=== PATIENT | female | born 1995 | race Caucasian/White ===

== ENCOUNTER 2023-08-02 12:42 | Outpatient (CLI) | payer MEDICAID ==
[2023-08-02 17:52] LABS: HCT - HEMATOCRIT 36.2 % (37.0-47.0); HGB - HEMOGLOBIN 11.8 g/dL (12.0-16.0); MEAN CORPUSCULAR HEMOGLOBIN 28.2 pg (27.0-31.0); MEAN CORPUSCULAR HGB CONC 32.6 g/dL (32.0-36.0); MEAN CORPUSCULAR VOLUME 86.6 fL (81.0-99.0); MEAN PLATELET VOLUME 9.8 fL (7.9-10.8); RED BLOOD COUNT 4.18 10^6/uL (4.20-5.40); RED CELL DISTRIBUTION WIDTH 13.6 % (12.0-15.0)
== END 2023-08-02 12:43 | disposition home or self-care (01) ==
LOC: LAB.N 12:42
PROVIDERS: ATTEND Obstetrics & Gynecology
DX: O09.92 Supervision of high risk pregnancy, unspecified, second trimester (principal); R76.0 Raised antibody titer
CPT/HCPCS: 36415; 81599; 82950; 85027; 86850; 86870; 86880

== ENCOUNTER 2023-09-06 11:06 | Outpatient (CLI) | payer MEDICAID | END 2023-09-06 11:07 | disposition home or self-care (01) | LOC: LAB.N 11:06 | PROVIDERS: ATTEND Obstetrics & Gynecology Maternal & Fetal Medicine | DX: O36.0990 Maternal care for other rhesus isoimmunization, unspecified trimester, not applicable or unspecified (principal) | CPT/HCPCS: 81599; 86850 ==

== ENCOUNTER 2023-09-20 08:33 | Outpatient (CLI) | payer MEDICAID ==
[2023-09-20 08:58] VITALS: BP 120/81
--- NOTE | 2023-09-20 09:38 | PROCEDURE REPORT ---
- HPI Diagnosis/Indication for NST: Other (antibody positive) Current EDU 10/30/23 Gestation 34 Weeks and 2 Days 2 Para 1 Vital Signs Temperature 98.1 F 09/20/23 08:44 Heart Rate 95 09/20/23 08:44 Respiratory Rate 17 09/20/23 08:44 Blood Pressure 120/81 H 09/20/23 08:44 Temperature 98.1 F 09/20/23 08:44 Heart Rate 95 09/20/23 08:44 Respiratory Rate 17 09/20/23 08:44 Blood Pressure 120/81 H 09/20/23 08:44 O2 Saturation If not protocol: Oxygen Flow, liters/minute - NST Procedure NST Procedure Start Date 09/20/23 Start Time 08:42 Stop Time 09:08 Vibroacoustic Stimulation Used No Patient States Movement Yes 125 mod candace + A cells no D cells reactive - Results and Plan Findings/Impression: reactive and reassuring NST Plan: continue with scheduled ANC / collaborative care with MFM. precautions reviewed.
== END 2023-09-20 09:13 | disposition home or self-care (01) ==
LOC: WFO 08:33 → FBP 08:35 → WFO 09:13
PROVIDERS: ATTEND Obstetrics & Gynecology
DX: O09.893 Supervision of other high risk pregnancies, third trimester (principal); O28.8 Other abnormal findings on antenatal screening of mother; Z3A.34 34 weeks gestation of pregnancy
CPT/HCPCS: 59025

== ENCOUNTER 2023-09-27 08:51 | Outpatient (CLI) | payer MEDICAID ==
[2023-09-27 09:38] VITALS: BP 120/74
--- NOTE | 2023-09-27 09:40 | PROCEDURE REPORT ---
- HPI Diagnosis/Indication for NST: Other (antiC+, antiE) Vital Signs Temperature 98.2 F 09/27/23 09:01 Heart Rate 98 09/27/23 09:01 Respiratory Rate 18 09/27/23 09:01 Blood Pressure 120/74 09/27/23 09:01 Temperature 98.2 F 09/27/23 09:01 Heart Rate 98 09/27/23 09:01 Respiratory Rate 18 09/27/23 09:01 Blood Pressure 120/74 09/27/23 09:01 O2 Saturation If not protocol: Oxygen Flow, liters/minute - NST Procedure NST Procedure Start Time 08:42 Stop Time 09:08 35+2 weeks anti-C and anti-E antibodies 120, moderate variability, +accels, no decels reactive NST
== END 2023-09-27 09:40 | disposition home or self-care (01) ==
LOC: WFO 08:51 → FBP 08:54 → WFO 09:40
PROVIDERS: ATTEND Obstetrics & Gynecology Obstetrics
DX: O09.93 Supervision of high risk pregnancy, unspecified, third trimester (principal); O99.891 Other specified diseases and conditions complicating pregnancy; R76.0 Raised antibody titer; Z3A.35 35 weeks gestation of pregnancy
CPT/HCPCS: 59025

== ENCOUNTER 2023-09-29 11:13 | Outpatient (CLI) | payer MEDICAID | END 2023-09-29 11:14 | disposition home or self-care (01) | LOC: LAB 11:13 | PROVIDERS: ATTEND Obstetrics & Gynecology | DX: R76.0 Raised antibody titer (principal) | CPT/HCPCS: 81599; 86886 ==

== ENCOUNTER 2023-10-05 11:54 | Outpatient (CLI) | payer MEDICAID ==
[2023-10-05 12:12] VITALS: BP 125/68
--- NOTE | 2023-10-05 12:24 | PROCEDURE REPORT ---
- HPI Vital Signs Temperature 98.1 F 10/05/23 12:05 Heart Rate 105 H 10/05/23 12:05 Respiratory Rate 20 10/05/23 12:05 Blood Pressure 125/68 10/05/23 12:05 Temperature 98.1 F 10/05/23 12:05 Heart Rate 105 H 10/05/23 12:05 Respiratory Rate 20 10/05/23 12:05 Blood Pressure 125/68 10/05/23 12:05 O2 Saturation If not protocol: Oxygen Flow, liters/minute - NST Procedure NST Procedure Start Time 09:05 Stop Time 09:31 - Results and Plan Plan: Patient is a 27-year-old -0-0-1 at 36 weeks 3 days gestation here for scheduled NST. NST Performed 10/05/2023 NST Read 10/05/2023 FHT: 135 bpm baseline, moderate variability, accelerations present, no decelerations. Reactive NST [place]: Quiescent Diagnosis 36 weeks gestation obesity Continue with scheduled NST.
== END 2023-10-05 12:32 | disposition home or self-care (01) ==
LOC: WFO 11:54 → FBP 11:56 → WFO 12:32
PROVIDERS: ATTEND Obstetrics & Gynecology
DX: O99.213 Obesity complicating pregnancy, third trimester (principal); Z3A.36 36 weeks gestation of pregnancy
CPT/HCPCS: 59025

== ENCOUNTER 2023-10-06 15:48 | Outpatient (CLI) | payer MEDICAID | END 2023-10-06 15:49 | disposition home or self-care (01) | LOC: LAB.WC 15:48 | PROVIDERS: ATTEND Obstetrics & Gynecology | DX: Z36.85 Encounter for antenatal screening for Streptococcus B (principal) | CPT/HCPCS: 87797 ==

== ENCOUNTER 2023-10-11 10:04 | Outpatient (CLI) | payer MEDICAID ==
[2023-10-11 10:29] VITALS: BP 126/78
--- NOTE | 2023-10-11 11:03 | PROCEDURE REPORT ---
- HPI Diagnosis/Indication for NST: Other (antibody positive) Vital Signs Temperature 98.4 F 10/11/23 10:17 Heart Rate 109 H 10/11/23 10:17 Respiratory Rate 16 10/11/23 10:17 Blood Pressure 126/78 10/11/23 10:17 Temperature 98.4 F 10/11/23 10:17 Heart Rate 109 H 10/11/23 10:17 Respiratory Rate 16 10/11/23 10:17 Blood Pressure 126/78 10/11/23 10:17 O2 Saturation If not protocol: Oxygen Flow, liters/minute - NST Procedure NST Procedure Start Time 12:02 Stop Time 12:28 - Results and Plan Findings/Impression: 125 mod candace + A cells no D cells reactive and reassuring. Plan: OK to D/C home with precautions and instructions continue scheduled care.
== END 2023-10-11 11:05 | disposition home or self-care (01) ==
LOC: WFO 10:04 → FBP 10:09 → WFO 11:05
PROVIDERS: ATTEND Obstetrics & Gynecology
DX: O09.93 Supervision of high risk pregnancy, unspecified, third trimester (principal); O99.891 Other specified diseases and conditions complicating pregnancy; R76.0 Raised antibody titer; Z3A.00 Weeks of gestation of pregnancy not specified
CPT/HCPCS: 59025

== ENCOUNTER 2023-10-12 10:12 | Outpatient (CLI) | payer MEDICAID ==
[2023-10-12 10:24] LABS: HCT - HEMATOCRIT 32.9 % (37.0-47.0); HGB - HEMOGLOBIN 10.3 g/dL (12.0-16.0); MEAN CORPUSCULAR HEMOGLOBIN 25.4 pg (27.0-31.0); MEAN CORPUSCULAR HGB CONC 31.3 g/dL (32.0-36.0); MEAN CORPUSCULAR VOLUME 81.2 fL (81.0-99.0); MEAN PLATELET VOLUME 9.9 fL (7.9-10.8); RED BLOOD COUNT 4.05 10^6/uL (4.20-5.40); RED CELL DISTRIBUTION WIDTH 14.2 % (12.0-15.0); WHITE BLOOD COUNT 10.7 x10^3/uL (4.8-10.8)
== END 2023-10-12 10:13 | disposition home or self-care (01) ==
LOC: LAB 10:12
PROVIDERS: ATTEND Obstetrics & Gynecology
DX: O99.213 Obesity complicating pregnancy, third trimester (principal); O99.891 Other specified diseases and conditions complicating pregnancy; R76.0 Raised antibody titer
CPT/HCPCS: 36415; 85027; 86886

== ENCOUNTER 2023-10-18 09:54 | Outpatient (CLI) | payer MEDICAID ==
[2023-10-18 10:23] VITALS: BP 139/70
--- NOTE | 2023-10-18 10:37 | PROCEDURE REPORT ---
- HPI Vital Signs Temperature 98.4 F 10/18/23 10:17 Heart Rate 110 H 10/18/23 10:17 Respiratory Rate 16 10/18/23 10:17 Blood Pressure 139/70 H 10/18/23 10:17 Temperature 98.4 F 10/18/23 10:17 Heart Rate 110 H 10/18/23 10:17 Respiratory Rate 16 10/18/23 10:17 Blood Pressure 139/70 H 10/18/23 10:17 O2 Saturation If not protocol: Oxygen Flow, liters/minute - Results and Plan Plan: Patient is a 28-year-old -0-0-1 at 38 weeks 2 days gestation here for sche duled NST. NST Performed 10/18/2023 NST Read 10/18/2023 FHT: 145 bpm baseline, moderate variability, accelerations present, no decelerations. Reactive NST [place]: Irregular Diagnosis 38 weeks gestation Abnormal antibodies Continue with scheduled NST.
== END 2023-10-18 10:40 | disposition home or self-care (01) ==
LOC: WFO 09:54 → FBP 10:12 → WFO 10:40
PROVIDERS: ATTEND Obstetrics & Gynecology
DX: O09.93 Supervision of high risk pregnancy, unspecified, third trimester (principal); O99.891 Other specified diseases and conditions complicating pregnancy; R76.0 Raised antibody titer; Z3A.38 38 weeks gestation of pregnancy
CPT/HCPCS: 59025

== ENCOUNTER 2023-10-23 08:57 | Inpatient (IN) | payer MEDICAID ==
[2023-10-23] MEDS ORDERED: LACTATED RINGERS 1,000 ML IV PRN (09:06)
[2023-10-23] MEDS ORDERED: CARBOPROST TROMETHAMINE 250 MCG/ML AMP IM PRN (09:06)
[2023-10-23] MEDS ORDERED: fentaNYL 100 MCG/2 ML VIAL IVP PRN (09:06)
[2023-10-23] MEDS ORDERED: LABETALOL 20 MG/4 ML SYRINGE IVP PRN ×3 (09:06)
[2023-10-23] MEDS ORDERED: miSOPROStoL 200 MCG TABLET BC PRN (09:06)
[2023-10-23] MEDS ORDERED: OXYTOCIN 10 UNIT/ML VIAL IM PRN (09:06)
[2023-10-23] MEDS ORDERED: SODIUM CHLORIDE FLUSH 0.9% 10 ML SYRINGE IVP PRN (09:06)
[2023-10-23] MEDS ORDERED: ACETAMINOPHEN 500 MG TABLET PO PRN (09:06)
[2023-10-23] MEDS ORDERED: lidocaine 1% 20 ML MDV ID PRN (09:06)
[2023-10-23] MEDS ORDERED: METHYLERGONOVINE 0.2 MG/ML VIAL IM PRN (09:06)
[2023-10-23] MEDS ORDERED: OXYTOCIN/SODIUM CHLORIDE 500 ML IV PRN (09:06)
[2023-10-23] MEDS ORDERED: hydrALAZINE INJ 20 MG/ML VIAL IVP PRN ×2 (09:06)
[2023-10-23] MEDS ORDERED: TRANEXAMIC ACID IN NACL 1,000 MG/100 ML BAG IV PRN (09:06)
[2023-10-23] MEDS ORDERED: NIFEdipine 10 MG CAPSULE PO PRN (09:06)
[2023-10-23] MEDS ORDERED: TERBUTALINE 1 MG/ML VIAL SUBQ PRN (09:06)
[2023-10-23] MEDS ORDERED: miSOPROStoL 200 MCG TABLET PR PRN (09:06)
[2023-10-23] MEDS ORDERED: LACTATED RINGERS 1,000 ML IV SCH ×2 (10:00→19:00)
[2023-10-23] MEDS ORDERED: SODIUM CHLORIDE FLUSH 0.9% 10 ML SYRINGE IVP SCH (10:00)
[2023-10-23] MEDS ORDERED: AMPICILLIN 2 GM in SODIUM CHLORIDE 0.9% MINIBAG 100 ML IV ONE (10:03)
[2023-10-23 10:19] LABS: BASOPHILS % (AUTO) 0.4 %; EOSINOPHILS # (AUTO) 0.2 10^3/uL (0.0-0.7); EOSINOPHILS % (AUTO) 2.1 %; HCT - HEMATOCRIT 32.4 % (37.0-47.0); HGB - HEMOGLOBIN 10.1 g/dL (12.0-16.0); LYMPHOCYTES # (AUTO) 2.3 10^3/uL (1.5-3.5); LYMPHOCYTES % (AUTO) 21.9 %; MEAN CORPUSCULAR HEMOGLOBIN 25.1 pg (27.0-31.0); MEAN CORPUSCULAR HGB CONC 31.2 g/dL (32.0-36.0); MEAN CORPUSCULAR VOLUME 80.4 fL (81.0-99.0); MEAN PLATELET VOLUME 10.2 fL (7.9-10.8); MONOCYTES # (AUTO) 1.1 10^3/uL (0.0-1.0); MONOCYTES % (AUTO) 10.2 %; NEUTROPHILS # (AUTO) 6.8 10^3/uL (1.5-6.6); NEUTROPHILS % (AUTO) 64.4 %; PLT - PLATELET COUNT 319 10^3/uL (130-450); RED BLOOD COUNT 4.03 10^6/uL (4.20-5.40); RED CELL DISTRIBUTION WIDTH 14.3 % (12.0-15.0); WHITE BLOOD COUNT 10.5 x10^3/uL (4.8-10.8)
--- NOTE | 2023-10-23 10:20 | HISTORY & PHYSICAL EXAMINATION ---
Admit History - : 2 Parity: 1 Complications This : positive: Other (Abnormal antibodies) - Mother's Labs Mother's Blood Type: positive: O Mother's RH: positive: Positive GBS: positive: Group B Strep Positive Rubella Status: positive: Immune - Other Maternal History Other Maternal History: HPI: Patient is a 28-year-old -0-0-1 at 39 weeks 0 days gestation by LMP consistent with 9-week ultrasound. She has good movement. Denies loss of fluid. No ALEXANDER/BV or RUQP. No vaginal bleeding. Denies nausea and vomiting. Denies urinary urgency or dysuria. All other symptoms reviewed and were negative except per HPI. Course LMP: 01/23/2023 ANISH by LMP: c/w 9-week ultrasound US: 04/06/2023 Final ANISH: 10/30/2023 JUSTINO Mcgee, a global climate change researcher. Problems: 1. Abnormal antibody titers: Currently anti-C positive, but previously anti-E positive. E titer was negative, and C titer was not performed. Father the baby is anti-E positive as well. Doing Q4 week titers. If increased to 1:16 getting NSTs from 34 weeks. and IOL at 39w [facility] appt for MCA Dopplers -- they test her blood and then test her U/S - monthly. reviewed ABs in detail and MCA Dopplers and justification. Transferred from [facility] at 21 weeks. Pre- Weight: 215lb BMI: 35.7 Blood type: O+ Antibody: [id number]-N?-Anti-C CBC: PLT-328 HCT-38.6 HGB-13.1 RUB: immune VZV: immune HBsAg: negative HepC: negative RPR/AB-EIA: non-reactive HIV: negative PAP: 07/16/2020-normal DUE GC/CT: negative HSV:Denies in self and partner Genetic testing: MSAFP-negative Covid:virus x1 No shots, declines Flu: August 17, 2023 RSV vaccine - Sep. FAS:@[facility] EFW 370g 18th%ile NIDIA normal 3VC anterior placenta no previa 50gm OGCT: 131 TDAP: given 08/17 Breast Pump: given 08/17 3rd trimester: 08/02- H/H 11.8/36.2 plt 354 10/12/2023- H/H 10.3/32.9 PLT 310 GBS: 10/06/2023- Positive Delivery plan: 39w IOL Contraception: while on OCPs. Desires Mirena PMH Irregular menses depression PSH Tonsillectomy: 2014 mole removal OB History -0-0-1 02/18/2021, 39 weeks, , male, 8 pounds 8 ounces SH Former smoker. No tobacco, alcohol, drugs currently Family History Father: Neuralgia Allergies No known drug allergies Medications Ferrous sulfate vitamins Physical exam: General: Alert, oriented, no acute distress Head: Normal cephalic atraumatic Eyes: PERRLA, extraocular motions intact. Respiratory: Normal rate of respiration. No accessory muscle use, normal respiratory effort. Cardiovascular: Regular rate and rhythm Abdomen: Gravid, nontender, nondistended Extremities: Normal range of motion Neuro: Oriented x3. Normal movements Psych: Appropriate mood and affect. Normal judgment and insight SVE: 4/50/-2 FHT: 140 beats per baseline, moderate variability, accelerations present, no decelerations. [place]: Quiescent Plan [age] of-year-old -0-0-1 at 39 weeks gestation here for induction of labor 1. Induction of labor -Admit to L&D, admit labs -Amniotomy performed with small amount of clear fluid. 2. 39 weeks gestation 3. Abnormal antibody titers -Type and screen pending 4. History of depression -Will monitor for worsening symptoms 5. GBS positive -Ampicillin for GBS sepsis prophylaxis 6. Obesity class II - NST Procedure NST Procedure Start Time 10:04 Stop Time 10:33 Meds/Allgy - Allergies Allergies/Adverse Reactions: Allergies Allergy/AdvReac Type Severity Reaction Status Date / Time No Known Drug Allergies Allergy Verified 10/23/23 10:06 Plan for Labor - Plan For Labor I expect patient to be DC'd or transferred within 96 hours.: Yes
[2023-10-23] MEDS ORDERED: OXYTOCIN/SODIUM CHLORIDE 500 ML IV SCH (13:00)
[2023-10-23] MEDS: AMPICILLIN 1 GM in SODIUM CHLORIDE 0.9% MINIBAG 100 ML IV SCH ×2 (14:28→18:27)
[2023-10-23] MEDS ORDERED: ROPIVACAINE 0.2% 200 MG/100 ML BAG EP ONE (17:37)
--- NOTE | 2023-10-23 17:41 | PROVIDER PROGRESS NOTE ---
Labor Progress Note - Uterine Monitoring Uterine Monitoring Mode: positive: External toco Contraction Frequency (min/apart): 2-4 Contraction Intensity: positive: Moderate to strong Uterine Resting Tone: positive: Soft - Monitoring Monitor Mode: positive: External ultrasound Heart Rate Baseline: 135 Heart Rate Variability: positive: Moderate (6-25 bmp) Accelerations: positive: Present, 15x15 Decelerations: positive: None Strip Review: positive: Category I - Vaginal Exam Dilation (in cm): 6/80/-1 Effacement (%): 90 Station: -1 - Labor Progress Note Labor Progress Note/Additional Text: Patient feeling more pressure, but still sick centimeters dilated. Contractions stronger, requesting epidural. Plan to continue oxytocin titration at this time. If she does not make progress, will consider IUPC.
[2023-10-23] MEDS ORDERED: ePHEDrine 50 MG/ML VIAL IVP ONE (18:13)
[2023-10-23] MEDS ORDERED: diphenhydrAMINE INJ 50 MG/ML VIAL IVP PRN (18:15)
[2023-10-23] MEDS ORDERED: NALOXONE 0.4 MG/ML VIAL IVP PRN (18:15)
[2023-10-23] MEDS ORDERED: ONDANSETRON 4 MG/2 ML VIAL IVP PRN ×2 (18:15→18:59)
[2023-10-23] MEDS ORDERED: ROPIVACAINE 0.2% 200 MG/100 ML BAG EP PRN (18:15)
[2023-10-23] MEDS ORDERED: ePHEDrine 50 MG/ML VIAL IVP PRN (18:15)
[2023-10-23] MEDS ORDERED: NALBUPHINE 10 MG/ML AMP IVP PRN (18:15)
[2023-10-23] MEDS ORDERED: METOCLOPRAMIDE 10 MG/2 ML VIAL IVP PRN (18:15)
[2023-10-23] MEDS ORDERED: LACTATED RINGERS 500 ML IV ONE (18:15)
--- NOTE | 2023-10-23 18:17 | ANESTHESIA ---
Pre-Anesthesia VS, & Labs - Diagnosis term labor, IUP - Procedure epidural for Vital Signs: Temp Pulse Resp BP Pulse Ox O2 Flow Rate 36.7 C 134 H 22 104/65 10/23/23 09:13 10/23/23 09:13 10/23/23 09:13 10/23/23 09:13 Height: 5 ft 5 in Weight (kg): 97.976 kg Body Mass Index: 35.9 BMI Classification: Obese - NPO Last Fluid Intake: t/o day - Is Patient ?: Yes - Lab Results Current Lab Results: Laboratory Tests 10/23/23 09:45: WBC 10.5, RBC 4.03 L, Hgb 10.1 L, Hct 32.4 L, MCV 80.4 L, MCH 25.1 L, MCHC 31.2 L, RDW 14.3, Plt Count 319, MPV 10.2, Neut # (Auto) 6.8 H, Lymph # (Auto) 2.3, [place] # (Auto) 1.1 H, Eos # (Auto) 0.2, Baso # (Auto) 0.0, Absolute Nucleated RBC 0.00, Nucleated RBC % 0.0 10/23/23 09:45: Blood Type O POSITIVE, Antibody Screen POSITIVE, Antibody Identification Anti-E, BAN, IgG Specific Not Reportable, BAN, Polyspecific NEGATIVE, BAN, C3d Specific Not Reportable, Crossmatch See Detail Lab results reviewed: Yes Fish Bones: 10/23/23 09:45 Home Medications and Allergies Active Medications Acetaminophen (Acetaminophen 500 Mg Tablet) 1,000 mg PO Q8H PRN PRN Reason: Mild Pain or Fever>38C(100.4F) Carboprost Tromethamine (Carboprost Tromethamine 250 Mcg/Ml Amp) 250 mcg IM .ONCE PRN PRN Reason: Hemorrhage Diphenhydramine HCl (Diphenhydramine Inj 50 Mg/Ml Vial) 12.5 - 25 mg IVP Q6HR PRN PRN Reason: ITCHING Ephedrine Sulfate (Ephedrine 50 Mg/Ml Vial) 5 mg IVP Q5M PRN PRN Reason: For SBP<100;give until SBP>100 Fentanyl (Fentanyl 100 Mcg/2 Ml Vial) 50 mcg IVP Q1H PRN PRN Reason: Severe Pain (score 7-10) Hydralazine HCl (Hydralazine Inj 20 Mg/Ml Vial) 5 - 10 mg IVP Q20M PRN; Protocol PRN Reason: SBP> or= 160 OR DBP> or= 110 Hydralazine HCl (Hydralazine Inj 20 Mg/Ml Vial) 10 mg IVP .ONCE PRN; Protocol PRN Reason: SBP> or= 160 OR DBP> or= 110 Lactated Ringer's (Lr) 500 mls @ 999 mls/hr IV PRN PRN PRN Reason: indication Oxytocin/Sodium Chloride (Pitocin/Sodium Chloride) 500 mls @ 999 mls/hr IV PRN PRN; Protocol PRN Reason: POST- HEMORR PREVENTION Tranexamic Acid (Tranexamic 1,000 Mg/100ml-Nacl) 1,000 mg in 100 mls @ 600 mls/hr IV Q30M PRN PRN Reason: EBL >1200mL and within 3hr Lactated Ringer's (Lr) 1,000 mls @ 125 mls/hr IV .Q8H [facility] Last Admin: 10/23/23 10:38 Dose: 125 mls/hr Ampicillin Sodium 1 gm/ Sodium (Chloride) 100 mls @ 200 mls/hr IV Q4H [facility] Last Admin: 10/23/23 14:28 Dose: 200 mls/hr Oxytocin/Sodium Chloride (Pitocin/Sodium Chloride) 500 mls @ 2 mls/hr IV TITR LULU; Protocol Last Titration: 10/23/23 15:00 Dose: 5 milliunit/min, 5 mls/hr Lactated Ringer's (Lr) 500 mls @ 999 mls/hr IV ONCE ONE Stop: 10/23/23 18:45 Labetalol HCl (Labetalol 20 Mg/4 Ml Syringe) 20 - 80 mg IVP Q10M PRN; Protocol PRN Reason: SBP> or= 160 OR DBP> or= 110 Labetalol HCl (Labetalol 20 Mg/4 Ml Syringe) 20 mg IVP .ONCE PRN; Protocol PRN Reason: SBP> or= 160 OR DBP> or= 110 Labetalol HCl (Labetalol 20 Mg/4 Ml Syringe) 20 - 40 mg IVP Q10M PRN; Protocol PRN Reason: SBP> or= 160 OR DBP> or= 110 Lidocaine HCl (Lidocaine 1% 20 Ml Mdv) 20 ml ID .ONCE PRN PRN Reason: PERINEAL REPAIR Stop: 10/26/23 09:07 Methylergonovine Maleate (Methylergonovine 0.2 Mg/Ml Vial) 0.2 mg IM .ONCE PRN PRN Reason: Hemorrhage Metoclopramide HCl (Metoclopramide 10 Mg/2 Ml Vial) 10 mg IVP Q6HR PRN PRN Reason: Nausea / Vomiting Misoprostol (Misoprostol 200 Mcg Tablet) 600 mcg BC .ONCE PRN PRN Reason: Hemorrhage Misoprostol (Misoprostol 200 Mcg Tablet) 800 mcg MA .ONCE PRN PRN Reason: Hemorrhage Nalbuphine HCl (Nalbuphine 10 Mg/Ml Amp) 2.5 - 5 mg IVP Q4H PRN PRN Reason: ITCHING Naloxone HCl (Naloxone 0.4 Mg/Ml Vial) 0.1 mg IVP Q2M PRN PRN Reason: RR<8 Nifedipine (Nifedipine 10 Mg Capsule) 10 - 20 mg PO Q20M PRN; Protocol PRN Reason: SBP> or= 160 OR DBP> or= 110 Ondansetron HCl (Ondansetron 4 Mg/2 Ml Vial) 4 mg IVP Q6HR PRN PRN Reason: Nausea / Vomiting Oxytocin (Oxytocin 10 Unit/Ml Vial) 10 unit IM .ONCE PRN PRN Reason: Step One if no IV access. Sodium Chloride (Sodium Chloride Flush 0.9% 10 Ml Syringe) 10 ml IVP PRN PRN PRN Reason: NEEDED PER PROVIDER ORDERS Sodium Chloride (Sodium Chloride Flush 0.9% 10 Ml Syringe) 10 ml IVP Q8H LULU Terbutaline Sulfate (Terbutaline 1 Mg/Ml Vial) 0.25 mg SUBQ .ONCE PRN PRN Reason: Tachystole Allergies/Adverse Reactions: Allergies Allergy/AdvReac Type Severity Reaction Status Date / Time No Known Drug Allergies Allergy Verified 10/23/23 10:06 Anes History & Medical History - Anesthetic History Anesthesia Complications: reports: No previous complications Family history of Anesthesia Complications: Denies Family history of Malignant Hyperthermia: Denies - Medical History Cardiovascular: reports: None Pulmonary: reports: None Gastrointestinal: reports: None Skin: reports: None Smoking Status: Former smoker - Surgical History Other Past Surgical History: wisdom teeth extraction - Obstetrical History : 2 Parity: 1 Complications: reports: Other (Abnormal antibodies) Exam General: Alert, Oriented x3, Cooperative Dental: WNL Mouth Openin Fingerbreadth Neck Mobility: Normal Mallampati classification: II Respiratory: No respiratory distress Cardiovascular: Regular rate Neurological: Normal speech Mental/Cognitive Status: Alert/Oriented X3, Normal for patient Cognitive Status: Within normal limits Plan Anesthesia Type: Epidural Consent for Procedure(s) Verified and Reviewed: Yes Code Status: Attempt Resuscitation ASA classification: 2-Mild systemic disease Is this case an emergency?: No
[2023-10-23] MEDS ORDERED: fentaNYL 100 MCG/2 ML VIAL ONE (18:21)
[2023-10-23] MEDS ORDERED: ROPIVACAINE 0.2% PF 20 ML AMPULE ONE (18:22)
[2023-10-23] MEDS ORDERED: SIMETHICONE CHEW 80 MG TABLET PO PRN (18:59)
[2023-10-23] MEDS ORDERED: CALCIUM CARBONATE CHEW 500 MG TABLET PO PRN (18:59)
--- NOTE | 2023-10-23 19:02 | DELIVERY NOTE ---
Delivery Note - Labor Labor: positive: Augmented by oxytocin, Induced by ARM - Presentation Presentation: positive: Vertex - Nuchal Cord Nuchal Cord: positive: None - Anesthetic Anesthetic Type: - Amniotic Fluid Description Amniotic Fluid Description: positive: Clear - Laceration Laceration: positive: None - Delivery Outcome Delivery Outcome: positive: Livebirth - [place]: positive: Placed in direct skin contact with mother, [place] used [place] sex: positive: Female - Cord Cord: positive: 3 vessels - Placenta Placenta: positive: Intact - Estimated Blood Loss Estimated Blood Loss (in cc): 200 - Post Delivery Events Post Delivery Events: positive: No post delivery events - Delivery Comments (Free Text/Narrative) Delivery Comments (Free Text/Narrative): Preoperative Diagnoses 39 weeks gestation Abnormal antibody titers GBS positive Obesity class II Postoperative Diagnoses Same Delivery of live dennis Status post spontaneous vaginal delivery Patient was admitted for induction of labor at 39 weeks gestation. She had a history of anti-E/anti-C antibodies but had normal surveillance throughout . She was 4 cm on arrival and had amniotomy. After not making change despite contractions, oxytocin was started. She continued on this through the day. She received an epidural for pain control, but got limited relief as when she was checked afterwards she was complete and ready to push. Delivery Summary: Patient was placed in the dorsal lithotomy position. Upon maternal pushing the head was delivered atraumatically followed by the anterior shoulder, posterior shoulder, then the remainder of the infant's body. A female infant was delivered with APGARS of 8 at 1 minute and 9 at 5 minutes. The was placed on its mother's chest . After the cord finished pulsating, the umbilical cord was clamped times two and cut. The placenta delivered intact with three vessel cord. Placenta was not sent to pathology. Thirty units of Pitocin were added to the IV fluid and allowed to run freely. Uterine massage was performed until uterus was deemed firm. Upon inspection of the perineum, vagina and cervix were intact. Upon re- inspection the patient was hemostatic. Uterus again massaged and found to be firm. Needle and sponge counts were correct. Patient was stable and allowed to recover in L&D room. Infant was stable and remained in room with mother. weight is pending at this time. Cervix checked and found to be complete at 1832, pushing at 1833. Delivery at 1849 with placenta 1854.
[2023-10-23] MEDS: ACETAMINOPHEN 500 MG TABLET PO SCH (21:08)
[2023-10-23] MEDS: IBUPROFEN 600 MG TABLET PO SCH (21:08)
[2023-10-23] MEDS: DOCUSATE SODIUM 100 MG CAPSULE PO PRN (21:09)
[2023-10-24] MEDS: IBUPROFEN 600 MG TABLET PO SCH ×3 (05:36→21:24)
[2023-10-24] MEDS: ACETAMINOPHEN 500 MG TABLET PO SCH ×2 (05:37→16:53)
--- NOTE | 2023-10-24 07:40 | PROVIDER PROGRESS NOTE ---
Subjective - Subjective Subjective: Subjective Patient reports she is doing well. Lochia appropriate. Denies heavy bleeding. Ambulating. Pelvic and abdominal pain well-controlled. Tolerating oral intake. Diet: Regular. Voiding without difficulty. Passing flatus. Denies BM. Patient is bonding with baby Breast feeding going well. Denies feeling lightheaded, dizzy or excessively fatigued. Objective General: Alert, oriented, no apparent distress. Cardiovascular: Regular rate. Regular rhythm. Lungs: No increased work of breathing. Abdomen: Uterus firm. Below umbilicus. No guarding or rebound. Extremities: No pain on palpation. No cords palpated. Distal pulses intact. Assessment and Plan day 1. -Routine care -Anticipate discharge tomorrow History of depression/baby blues - Discussed depression and that 2 weeks is within normal. She should keep an eye on this there is if she has any worsening mood. -Plan to follow-up within 1 week after discharge. Objective - Vital Signs/Intake & Output Vital Signs: Vital Signs x48h Temp Pulse Resp BP 10/24/23 05:51 98.2 F 90 16 111/64 10/24/23 00:33 92 18 114/63 Intake & Output: Intake & Output 10/21/23 10/22/23 10/23/23 10/24/23 23:59 23:59 23:59 23:59 Intake Total 1003.467 Output Total 1480 300 Balance -476.533 -300 - Lab Results Fish Bones: 10/23/23 09:45 Other Labs: Lab Results x24hrs 10/23/23 10/23/23 Range/Units 09:45 09:45 WBC 10.5 (4.8-10.8) x10^3/uL RBC 4.03 L (4.20-5.40) 10^6/uL Hgb 10.1 L (12.0-16.0) g/dL Hct 32.4 L (37.0-47.0) % MCV 80.4 L (81.0-99.0) fL MCH 25.1 L (27.0-31.0) pg MCHC 31.2 L (32.0-36.0) g/dL RDW 14.3 (12.0-15.0) % Plt Count 319 (130-450) 10^3/uL MPV 10.2 (7.9-10.8) fL Neut # (Auto) 6.8 H (1.5-6.6) 10^3/uL Lymph # (Auto) 2.3 (1.5-3.5) 10^3/uL [place] # (Auto) 1.1 H (0.0-1.0) 10^3/uL Eos # (Auto) 0.2 (0.0-0.7) 10^3/uL Baso # (Auto) 0.0 (0.0-0.1) 10^3/uL Absolute Nucleated RBC 0.00 x10^3/uL Nucleated RBC % 0.0 /100WBC Blood Type O POSITIVE Antibody Screen POSITIVE Antibody Identification Anti-E BAN, IgG Specific Not Reportable BAN, Polyspecific NEGATIVE BAN, C3d Specific Not Reportable Crossmatch See Detail
[2023-10-24] MEDS: DOCUSATE SODIUM 100 MG CAPSULE PO PRN ×2 (08:26→21:25)
[2023-10-25] MEDS: ACETAMINOPHEN 500 MG TABLET PO SCH ×2 (01:03→09:31)
[2023-10-25] MEDS: IBUPROFEN 600 MG TABLET PO SCH ×2 (03:43→09:30)
[2023-10-25 09:29] VITALS: BP 101/64; O2SAT 97
[2023-10-25] MEDS: DOCUSATE SODIUM 100 MG CAPSULE PO PRN (09:30)
--- NOTE | 2023-10-25 13:19 | DISCHARGE SUMMARY ---
Discharge Summary Admit Date: 10/23/23 Discharge Date: 10/25/23 Discharging Provider: Shelly Knight Code Status: Attempt Resuscitation Condition at Discharge: Good Discharge Disposition: 01 Home, Self Care - DIAGNOSES Admission Diagnoses: term admitted for labor induction due to maternal antibodies and obesity. Discharge Diagnoses with Status of Each Condition: She had a normal vaginal delivery of live . - HPI History of Present Illness: Followed during this for maternal antibodies, with no hydrops in baby and maternal titers that were very low or not detectable. she is also obese. - HOSPITAL COURSE Hospital Course: admitted at 4 for labor induction. AROM done and did not labor. Oxytocin started. she was getting her epidural, she went very fast and once epidural was placed she was ready to deliver, never getting much pain relief, but happy that the end of her labor went so fast. She pushed for a short time and had a vaginal delivery. PP course was unremarkable and she is discahrged home on PPD #2. - ALLERGIES Allergies/Adverse Reactions: Allergies Allergy/AdvReac Type Severity Reaction Status Date / Time No Known Drug Allergies Allergy Verified 10/23/23 10:06 - PHYSICAL EXAM AT DISCHARGE Abdomen: positive: Non-tender - LABS Result Diagrams: 10/23/23 09:45 - FOLLOW UP Follow Up: OB clinic in 1 week
--- NOTE | 2023-10-25 13:50 | Labor Flowsheet ---
Labor Flowsheet Datetime Report Generated by CPN: 10/25/2023 13:50 Datetime: 10/25/2023 09:15 VITAL SIGNS NBP Sys/Dagmar/Mean (mmHg): 101 : 64 : 73 Pulse: 88 LaborFlag: Labor Datetime: 10/23/2023 19:14 SpO2 (%): 99 Datetime: 10/23/2023 18:55 Stage 2 Comments: intact perineum, EBL 200 Datetime: 10/23/2023 18:36 Medication Comments: Nitrous started, okd by MD and [employer] TEACHER Datetime: 10/23/2023 18:33 STAGE 2 Pushing: Coached on Pushing; Urge to Push Pushing Position: Pushing with Contractions Datetime: 10/23/2023 18:31 COMMUNICATION Communication: Provider at Bedside Provider Notified (Name): Dr. Mcleod Datetime: 10/23/2023 18:29 Pattern: Normal: <= 5 Contractions in 10 Minutes Resting Tone (Palpate): Relaxed FHR Baseline Rate : 130 Accelerations: 10X10 Decelerations: None Comments: min-mod variablity Datetime: 10/23/2023 18:24 Patient Position/Activity: [place] Datetime: 10/23/2023 18:15 UTERINE ACTIVITY Monitor Mode: External Frequency (min): 2-3 Quality: Strong Duration (sec): 40-60 Variability: Moderate 6-25 bpm Datetime: 10/23/2023 18:13 Monitor Interventions for FHR: Ultrasound Adjusted Datetime: 10/23/2023 18:00 FHR Baseline Changes: No Baseline Change Patient Care Comments: emesis 50ml Datetime: 10/23/2023 17:49 Epidural Procedure: Test Dose Datetime: 10/23/2023 17:45 Category: Category I Datetime: 10/23/2023 17:40 PROCEDURE TIME OUT Procedure Verify: Correct Patient Identity; Correct Side and Site are Marked; Accurate Procedure Co nsent Form; Agreement on Procedure to be Done; Correct Patient Position; Relevant Images and Results are Properly Labeled and Displayed; Addressed Need to Administer Antibiotics or Fluids for Irrigation ; Safety Precautions Based on Patient History or Medication Use ANESTHESIA Anesthesia Plans: Epidural Epidural Positioning: Sitting Datetime: 10/23/2023 17:30 ASSESSMENT A Monitor Mode: External US Datetime: 10/23/2023 17:28 I/O Interventions: Up to BR Communication Comments: picking up moms HR Datetime: 10/23/2023 17:21 PATIENT CARE IV/Blood Work: IV Bolus Started Datetime: 10/23/2023 17:15 Pitocin Checklist: At Least 1 Acceleration of 15 bpm x 15 Seconds in 30 Minutes or Adequate Variabi lity; No More than 1 Late Deceleration Occurred in Past 30 Minutes; No More than 2 Variable Decelerat ions > 60 Seconds in Duration and decreasing >60 bpm in 30 minutes; No More than 5 Uterine Contractio ns in 10 Minutes for any 20 Minute Interval; Uterus Palpates Soft between Contractions Datetime: 10/23/2023 17:13 Temperature (C): 36.7 Datetime: 10/23/2023 17:10 Monitor Interventions for UA: [place] Adjusted Datetime: 10/23/2023 17:00 VAGINAL EXAM Dilatation (cm): 6.0 Effacement (%): 90 Station: -1 Exam by: Lori, RN Datetime: 10/23/2023 16:45 MEDICATIONS Pitocin (milliunits): Increased to @ 11 Datetime: 10/23/2023 12:55 Notification Reason: Status Update Datetime: 10/23/2023 12:51 Vaginal Bleeding: None Cervix, Consistency: Soft Cervix, Position: Posterior Datetime: 10/23/2023 12:30 Contraction Comments: undetectable, toco readjusted Datetime: 10/23/2023 10:34 Membrane Status: Ruptured Membranes Rupture Method: Artificial Amniotic Fluid Color: Clear Amniotic Fluid Amount: Small Amniotic Fluid Odor: Normal Datetime: 10/23/2023 09:24 Stage of : Labor Datetime: 10/23/2023 09:18 Temperature Route: Oral Datetime: 10/11/2023 10:30 Membranes Ruptured Date/Time: 10/23/2023 10:34 Cervical Ripening Agents Other: none
== END 2023-10-25 13:24 | disposition home or self-care (01) | DRG 807 ==
LOC: WFO 08:57 → FBP 08:57 → WFO 09:05 → FBP 09:06
PROVIDERS: ADMIT Obstetrics & Gynecology; ATTEND Obstetrics & Gynecology
PROC: 3E033VJ Introduction of Other Hormone into Peripheral Vein, Percutaneous Approach (ICD-10-PCS; principal; 2023-10-23)
PROC: 10E0XZZ Delivery of Products of Conception, External Approach (ICD-10-PCS; 2023-10-23)
PROC: 10907ZC Drainage of Amniotic Fluid, Therapeutic from Products of Conception, Via Natural or Artificial Opening (ICD-10-PCS; 2023-10-23)
DX: O99.214 Obesity complicating childbirth (principal); Z37.0 Single live birth; O36.1930 Maternal care for other isoimmunization, third trimester, not applicable or unspecified; O69.2XX0 Labor and delivery complicated by other cord entanglement, with compression, not applicable or unspecified; O99.824 Streptococcus B carrier state complicating childbirth; Z3A.39 39 weeks gestation of pregnancy
CPT/HCPCS: 59409; 85025; 86850; 86870; 86880; 86900; 86901; 86922; A9270; J7120

== ENCOUNTER 2023-12-05 08:00 | Outpatient (CLI) | payer MEDICAID ==
[2023-12-05 18:55] LABS: CHLAMYDIA TRACHOMATIS DNA NEGATIVE (NEGATIVE); NEISSERIA GONORRHOEAE DNA NEGATIVE (NEGATIVE); TRICHOMONAS VAGINALIS DNA NEGATIVE (NEGATIVE)
== END 2023-12-05 23:59 | disposition home or self-care (01) ==
LOC: LAB.WC 08:00
PROVIDERS: ATTEND Obstetrics & Gynecology
DX: Z11.3 Encounter for screening for infections with a predominantly sexual mode of transmission (principal)
CPT/HCPCS: 87491; 87591; 87661

== ENCOUNTER 2024-03-15 14:55 | Outpatient (CLI) | payer MEDICAID ==
--- NOTE | 2024-03-15 18:40 | XRAY Report ---
PROCEDURE: Ankle 3+V LT INDICATIONS: ANKLE PAIN, LEFT TECHNIQUE: 3 views of the ankle were acquired. COMPARISON: None. FINDINGS: Bones: No fractures or dislocations. Ankle mortise is normally aligned. No suspicious bony lesions . Soft tissues: No tibiotalar joint effusion. Achilles tendon appears normal. IMPRESSION: No visualized acute fracture or dislocation. However, occult injury cannot be excluded. Recommend lan rt interval imaging follow-up in 7-10 days as clinically indicated for additional evaluation. Reviewed by: Estrella Saxena MD on 03/15/2024 6:39 PM PDT Approved by: Estrella Saxena MD on 03/15/2024 6:39 PM PDT Station ID: [id number]
== END 2024-03-15 18:05 | disposition home or self-care (01) ==
LOC: DI.N 14:55
PROVIDERS: ATTEND Family Medicine
DX: M25.572 Pain in left ankle and joints of left foot (principal)